=== PATIENT | female | born 1945 | race Caucasian/White ===

== ENCOUNTER → 2017-08-21 12:56 | Outpatient (CLI) | payer MEDICARE, SELFPAY ==
--- NOTE | 2017-08-21 12:56 | DT_ITS ---
This patient was seen during an EMR downtime August 14, 2017 - August 21, 2017. This patient may have a combination of paper and electronic documentation or all paper documentation. All documentation is viewable within the e-chart portion of [facility] for each patient visit.
--- NOTE | 2017-08-21 12:59 | BI_ITS ---
MAMMOGRAPHY - BILATERAL SCREENING REASON FOR EXAM: Female, 72 years old. Routine annual screening examination. PERTINENT HISTORY: Non-contributory. TECHNIQUE: Digital bilateral breast yolette (3D mammographic acquisition) in the CC and MLO projections. 2-D mediolateral oblique (MLO) and craniocaudad (CC) views of both breasts were obtained. CAD: Full Field Digital Mammography with Computer Added Detection was performed. COMPARISON: 08/15/2016 and 08/11/2014. FINDINGS: Breast Composition: The breasts are heterogeneously dense, which may obscure small masses. There are no dominant masses or suspicious calcifications. No other significant abnormalities are identified. BI/SCREENING MAMM (CAD), BILAT IMPRESSION: Stable bilateral screening mammogram. Yearly follow-up mammogram recommended. (A) ASSESSMENT CATEGORY: BIRADS Category 2: Benign. A letter regarding these results will be sent to the patient by the facility within 30 days. Approximately 10% of breast cancers are not detected by mammography. A normal mammogram should not delay biopsy of a clinically suspicious abnormality. [id number] Electronically Signed: Jayashree Ware MD at 11:41 EDT Tel , Service support ,
== END ==
PROVIDERS: Family Provider Family Medicine; PCP Family Medicine; Visit Provider Family Medicine
DX: Z12.31 Encounter for screening mammogram for malignant neoplasm of breast (principal)
CPT/HCPCS: 77063; 77067

== ENCOUNTER → 2017-10-04 08:27 | Outpatient (CLI) | payer MEDICARE, SELFPAY ==
[2017-10-04 10:22] LABS: ALB/GLOB Ratio 1.2 RATIO (0.9-2.4); AST(SGOT) 41 U/L (15-37); Alanine Aminotransfer ALT/SGPT 48 U/L (13-56); Albumin, Serum 3.9 g/dL (3.2-5.0); Alkaline Phosphatase 73 U/L (45-117); Anion Gap 6 (5-15); BUN 8 mg/dL (7-18); Calcium,Total 9.1 mg/dL (8.5-10.1); Chloride 107 mmol/L (98-107); Cholesterol 179 mg/dL (200); Creatinine, Serum 0.73 mg/dL (0.55-1.02); EST Glomerular Filtration Rate 84 mL/min (>60); Est Glom Filt Rate - Afr Amer 101 mL/min (>60); Globulin 3.3 g/dL (2.2-4.2); Glucose 89 mg/dL (74-106); High Density Lipoprotein 62 mg/dL; Potassium 3.9 mmol/L (3.5-5.1); Protein, Total 7.2 g/dL (6.4-8.2); Sodium Level 144 mmol/L (136-145); Triglycerides 132 mg/dL; Very Low Density Lipoprotein 26 mg/dL (5-40)
== END ==
PROVIDERS: Family Provider Family Medicine; PCP Family Medicine; Visit Provider Family Medicine
DX: E78.00 Pure hypercholesterolemia, unspecified (principal)
CPT/HCPCS: 36415; 80053; 80061

== ENCOUNTER → 2018-04-05 08:24 | Outpatient (CLI) | payer MEDICARE, SELFPAY ==
[2018-04-05 10:37] LABS: Cholesterol 203 mg/dL (200); High Density Lipoprotein 79 mg/dL; Triglycerides 69 mg/dL; Very Low Density Lipoprotein 14 mg/dL (5-40)
== END ==
PROVIDERS: Family Provider Family Medicine; PCP Family Medicine; Visit Provider Family Medicine
DX: E78.00 Pure hypercholesterolemia, unspecified (principal)
CPT/HCPCS: 36415; 80061

== ENCOUNTER 2018-06-27 08:19 | Day surgery (SDC) | payer MEDICARE, SELFPAY ==
[2018-06-07 13:46] VITALS: BMI 24.3
--- NOTE | 2018-06-27 | GASB_PTH ---
PATIENT: YANIV BAILEY LOC: EN U#:[id number] AGE/SX: 73/F ROOM: RE06/27/[address]: Dr. Sunday Joshi MD : 1945 BED: DIS: 06/27/2018 SPEC #: [id number] RECD: 06/27/18 14:27 STATUS: DEO ELEUTERIO #: [id number] ZEE: 06/27/18 00:[address]: Sunday Joshi DEPT: SURGICAL PATHOLOGY RECD BY: Nicho Morrow ENTERED: 06/27/18 14:27 SP TYPE: Gastric Bx OTHR DR: Dr. Casa Gayle MD Tissues: A - Gastric mucous membrane B - Stomach, NOS Procedures: Surgery Specimen Level IV HEADER OPERATION: Colonoscopy, EGD ([facility] [place]) PRE-OP DIAGNOSIS: Positive Cologuard test TISSUE SUBMITTED: A - Antral biopsy, B - Polyp, stomach biopsy MICROSCOPIC DIAGNOSIS A. Gastric antrum, biopsy: Mild chronic gastritis. See comment. B. Gastric polyp, biopsy: Consistent with fundic gland polyp. AM:ashley 06/28/18 COMMENT A. The results of immunohistochemistry for Helicobacter pylori will be reported separately ([id number]). MICROSCOPIC DESCRIPTION Slides are reviewed. GROSS DESCRIPTION A - Received in fixative is one container labeled with the patient's name and designated antral biopsy. The specimen consists of one irregular fragment of light gonzalez soft tissue that measures 0.4 x 0.3 x 0.1 cm. The specimen is totally submitted in one cassette. B - Received in fixative is one container labeled with the patient's name and designated polyp stomach biopsy. The specimen consists of multiple irregular fragments of light gonzalez soft tissue that in aggregate measure 0.5 x 0.4 x 0.1 cm. The specimen is totally submitted in one cassette. / SJ:ashley 06/27/18 TC:3 CPT: 36389 x2
--- NOTE | 2018-06-27 | IMM_PTH ---
PATIENT: YANIV BAILEY LOC: EN U#:[id number] AGE/SX: 73/F ROOM: RE06/27/[address]: Dr. Sunday Joshi MD : 1945 BED: DIS: 06/27/2018 SPEC #: [id number] RECD: 06/28/18 13:01 STATUS: DEO REQ #: [id number] ZEE: 06/27/18 00:[address]: Sunday Joshi DEPT: IMMUNOHISTOCHEMISTRY RECD BY: Rain West ENTERED: 06/28/18 13:01 SP TYPE: IMMUNO OTHR DR: Dr. Casa Gayle MD Tissues: A - Stomach, NOS Procedures: H Pylori (initial) PHYSICIAN & INSTITUTION [place] [address] SPECIMEN INFORMATION: Tissue Source: A - Antral biopsy Clinical Info: Positive Cologuard test Specimen Number: [id number] CPT code: 16287 METHODOLOGY: Deparaffinized sections of prefer/formalin-fixed tissue or PAP/DQ stained slides are incubated with monoclonal/polyclonal antibodies/oligonucleotide probes. Localization is made via biotin free immunoperoxidase method. Appropriate controls are performed and reacted as expected. Results on target cell population are indicated in the following table: RESULTS: ANTIBODY / CLONE RESULT Block A H Pylori (polyclonal) negative These tests were developed and their performance characteristics determined by [facility]. They may not have been cleared or approved by the U.S. Food and Drug Administration. The FDA has determined that such clearance or approval is not necessary. INTERPRETATION: A. Antral biopsy: Negative for Helicobacter pylori organisms. AM:ashley 06/29/18
[2018-06-27 08:35] VITALS: BP 166/70; PULSE 90; RESP 18; TEMP 36.2; O2SAT 99; BMI 23.5
[2018-06-27 09:40] VITALS: BP 114/76; BP 166/70; PULSE 66; RESP 18; TEMP 36.8; O2SAT 95
[2018-06-27 09:45] VITALS: BP 130/82; BP 166/70; PULSE 64; RESP 18; O2SAT 94
--- NOTE | 2018-06-27 09:45 | OP.ENDO_ITS ---
06/27/2018 Casa Gayle MD [address] [id number] Re : Upper GI endoscopy procedure for Monika Calderón Dear Dr. Gayle This procedure was performed on Wednesday, June 27, 2018. My impressions and recommendations are as follows: Impressions : - Normal esophagus. - Erythematous mucosa in the prepyloric region of the stomach. Biopsied. - A few gastric polyps. Resected and retrieved. - Normal examined duodenum. No specimens collected. Recommendations : - Discharge patient to home. - Resume previous diet. - Continue present medications. - Await pathology results. - Repeat upper endoscopy at appointment to be scheduled for screening purposes. - Return to my office in 1 week. My findings are described in the full procedure note, which is enclosed. If I can be of further assistance, please feel free to contact me at Doctor phone number(s): , Fax: [phone], Work: . Sincerely, MD Sunday Corrigan MD 06/27/2018 9:45:20 AM This report has been signed electronically.
[2018-06-27 09:50] VITALS: BP 126/80; BP 166/70; PULSE 68; RESP 16; O2SAT 98
--- NOTE | 2018-06-27 09:50 | OP.ENDO_ITS ---
06/27/2018 Casa Gayle MD [address] [place] [address] Re : Colonoscopy procedure for Monika Calderón Dear Dr. Gayle This procedure was performed on Wednesday, June 27, 2018. My impressions and recommendations are as follows: Impressions : - Diverticulosis in the sigmoid colon and in the descending colon. No specimens collected. - The examination was otherwise normal on direct and retroflexion views. Recommendations : - Discharge patient to home. - Resume previous diet. - Continue present medications. - Repeat colonoscopy in 10 years for screening purposes. - Return to my office in 1 week. My findings are described in the full procedure note, which is enclosed. If I can be of further assistance, please feel free to contact me at Doctor phone number(s): , Fax: [phone], Work: . Sincerely, MD Sunday Corrigan MD 06/27/2018 9:50:03 AM This report has been signed electronically.
[2018-06-27 09:57] VITALS: BP 108/96; BP 166/70; PULSE 61; RESP 16; TEMP 37; O2SAT 94
[2018-06-27 10:21] VITALS: BP 166/70
== END 2018-06-27 10:40 | disposition home or self-care (01) ==
LOC: EN 08:19 → AC 08:21
PROVIDERS: Family Provider Family Medicine; PCP Family Medicine; Referring Provider Surgery; Visit Provider Surgery
PROC: 0DJD8ZZ Inspection of Lower Intestinal Tract, Via Natural or Artificial Opening Endoscopic (ICD-10-PCS; CPT 45378; principal; 2018-06-27 09:25)
DX: K29.50 Unspecified chronic gastritis without bleeding (principal); K31.7 Polyp of stomach and duodenum; K57.30 Diverticulosis of large intestine without perforation or abscess without bleeding; K64.8 Other hemorrhoids; R19.5 Other fecal abnormalities; E78.00 Pure hypercholesterolemia, unspecified
CPT/HCPCS: 43239; 45378; 88305; 88342; J7120; J1610

== ENCOUNTER → 2018-08-23 08:36 | Outpatient (CLI) | payer MEDICARE, SELFPAY ==
--- NOTE | 2018-08-23 08:38 | BI_ITS ---
MAMMOGRAPHY - BILATERAL SCREENING REASON FOR EXAM: Female, 73 years old. Routine annual screening examination. PERTINENT HISTORY: Personal history of breast cancer. Prior right lumpectomy. TECHNIQUE: Digital bilateral breast román (3D mammographic acquisition) in the CC and MLO projections. 2-D mediolateral oblique (MLO) and craniocaudad (CC) views of both breasts were obtained. CAD: Full Field Digital Mammography with Computer Added Detection was performed. COMPARISON: Comparison is made with prior study dated August 21, 2017 and August 15, 2016. FINDINGS: Breast Composition: The breasts are heterogeneously dense, which may obscure small masses. There are no dominant masses or suspicious calcifications. No other significant abnormalities are identified. There has been no significant change since the prior study. BI/SCREEN MAMM (CAD) W/ROMÁN BILAT IMPRESSION: Stable bilateral screening mammogram. Yearly follow-up mammogram recommended. (A) ASSESSMENT CATEGORY: BIRADS Category 1: Negative. A letter regarding these results will be sent to the patient by the facility within 30 days. Approximately 10% of breast cancers are not detected by mammography. A normal mammogram should not delay biopsy of a clinically suspicious abnormality. [id number] Electronically Signed: Praveen Barrett, at 10:38 EDT , Service support ,
== END ==
PROVIDERS: Family Provider Family Medicine; PCP Family Medicine; Referring Provider Family Medicine; Visit Provider Family Medicine
DX: Z00.00 Encounter for general adult medical examination without abnormal findings (principal); Z12.31 Encounter for screening mammogram for malignant neoplasm of breast
CPT/HCPCS: 77063; 77067

== ENCOUNTER 2018-10-07 05:21 | Emergency (ER) | payer MEDICARE, SELFPAY ==
[2018-10-07 05:22] VITALS: BP 178/85; PULSE 91; RESP 15; TEMP 36.7; O2SAT 97; BMI 24.7
--- NOTE | 2018-10-07 05:31 | CT_ITS ---
STUDY: CT ABDOMEN AND PELVIS WITHOUT CONTRAST REASON FOR EXAM: Female, 73 years old. Left lower quadrant pain, breast cancer, hysterectomy RADIATION DOSAGE (If Supplied By Facility): CTDIvol = ( 7.25 ) mGy, DLP = ( 382.16 ) mGycm TECHNIQUE: Transaxial images were obtained from the dome of the diaphragm to the symphysis pubis without oral contrast, and without intravenous contrast. Sagittal and coronal images were reconstructed. Individualized dose optimization techniques were used for this CT. COMPARISON: None. FINDINGS: This is a limited non-IV and nonoral contrast study. There are mild groundglass opacities within the lung bases. There is mild linear subsegmental atelectasis within the right middle lobe. The visualized portions of the heart are within normal limits. Normal liver. Normal gallbladder and extrahepatic biliary system. Normal spleen. Normal pancreas. Normal bilateral adrenal glands. Normal right kidney. Normal left kidney. Normal visualized stomach. Normal small intestine. There is significant stranding within the perisigmoid fat. There are multiple colonic diverticula. There is a moderate to large colonic fecal load with mild cecal distention. There is prior hysterectomy. There is linear hyperdensity which may be surgical staple line near the location of the base of the appendix is maybe from prior appendectomy Normal abdominal aorta. Normal inferior vena cava. Normal retroperitoneum. There is mild distention of the bladder.. Normal abdominal wall. There are Multilevel degenerative changes lower thoracic and lumbar spine. There is mild lumbar spine levoscoliosis. There are mild degenerative changes bilateral hips and acetabulum. There are multiple vascular calcifications. There is a small hiatal hernia. CT/Abdomen/Pelvis without Cont IMPRESSION: Limited non-IV nonoral contrast study Acute sigmoid colon diverticulitis Likely partial fecal impaction with moderate to large colonic fecal load, mild cecal distention, once treated colonoscopy would be recommended to exclude underlying lesion Distended bladder Prior hysterectomy and likely prior appendectomy Mild groundglass pulmonary opacities in the lung bases, hypoventilatory changes and/or mild infectious inflammatory infiltrates, pneumonia Multilevel degenerative changes lower thoracic and lumbar spine. There is mild lumbar spine levoscoliosis. There are mild degenerative changes bilateral hips and acetabulum Small hiatal hernia Electronically Signed: Juancarlos Walters, at 6:52 EDT Tel , Service support ,
--- NOTE | 2018-10-07 05:31 | ED.VIS.GEN ---
History of Present Illness Chief Complaint: Abd Pain Informant: Patient Onset: Today Narrative: Sudden worsening lower abdominal pain awakening her from sleep. States was mild initially went to urinate try to go back to bed however pain increased. Was able to force to small bowel movements. Denies any dysuria. Denies noting any clear blood in stools. No fevers. Had nausea at home, however none currently. No history of kidney stones. Status post EGD colonoscopy [address] Joshi for due to a positive screening test. Had polypectomy removed in the gastrum. Diverticulosis on colonoscopy, states may have had diverticulitis in the past however this feels different. Pain is 8 out of 10. Allergy reported to Demerol causing nausea. History of total hysterectomy in the past. Prior similar symptoms: No Past Medical History - Allergies and Home Meds Allergies/Adverse Reactions: Allergies meperidine [From Demerol] Allergy (Mild, Verified 10/07/18 05:24) Unknown Primary Care Physician: Casa Gayle MD [Primary Care Provider] - Smoking Status: Never smoker Review of Systems General: Denies: Chills, Fever, Sweats Eyes: Denies: Visual changes - bilaterally, Diplopia ENT: Denies: Rhinorrhea, Sore throat Cardiovascular: Denies: Chest pain, Palpitations Respiratory: Denies: Dyspnea, Cough, Dyspnea on exertion Gastrointestinal: Reports: Abdominal pain. Denies: Nausea, Vomiting, Diarrhea, Melena, Hematochezia Genitourinary: Denies: Dysuria, Hematuria, Frequency Musculoskeletal: Denies: Back pain, Extremity Pain Skin: Denies: Rash, Wounds Neurological: Denies: Headache, Weakness, Numbness Physical Exam Vital Signs/Narrative: Vital Signs Temp Pulse Resp BP Pulse Ox 10/07/18 05:22 98.1 F 91 15 178/85 H 97 Inital Vital Signs reviewed: Yes General: Well nourished, Well developed, No Acute Distress Head: Normocephalic, Atraumatic Eyes: Perrl, EOMI ENT: Moist mucous membranes, No rhinorrhea Neck: Supple, Nontender Cardiovascular: Regular rate, Regular rhythm, No murmurs Respiratory: No distress, CTA bilaterally, Chest nontender Abdomen: Soft, Nondistended, Normal bowel sounds, Tender, - - Mild tenderness left lower quadrant without guarding or rebound. Negative McBurney's tenderness. Back: Nontender, Normal Inspection Extremities: Nontender, No edema Skin: Normal color, No rash Neurological: Alert, Oriented x3, Cranial nerves II-XII grossly intact, Normal Strength, Normal Sensation Psychological: Normal affect, Normal Mood Diagnostic/Tx/Re-eval Clinical Impression(s) from Imaging Studies Abdomen/Pelvis CT 10/07/18 05:31 IMPRESSION: Limited non-IV nonoral contrast study Acute sigmoid colon diverticulitis Likely partial fecal impaction with moderate to large colonic fecal load, mild cecal distention, once treated colonoscopy would be recommended to exclude underlying lesion Distended bladder Prior hysterectomy and likely prior appendectomy Mild groundglass pulmonary opacities in the lung bases, hypoventilatory changes and/or mild infectious inflammatory infiltrates, pneumonia Multilevel degenerative changes lower thoracic and lumbar spine. There is mild lumbar spine levoscoliosis. There are mild degenerative changes bilateral hips and acetabulum Small hiatal hernia Electronically Signed: Juancarlos Romeo, at 6:52 EDT Tel , Service support , Abnormal Lab Results 10/07/18 10/07/18 10/07/18 05:26 05:26 06:40 WBC 13.8 H RBC 4.17 L Hgb 13.4 Hct 39.7 MCV 95.2 MCH 32.1 H MCHC 33.8 RDW Std Deviation 41.9 RDW Coeff of Malachi 12.0 Plt Count 211 MPV 9.7 Immature Gran % (Auto) 0.400 Neut % (Auto) 85.4 H Lymph % (Auto) 8.9 L [place] % (Auto) 4.9 Eos % (Auto) 0.2 Baso % (Auto) 0.2 Absolute Neuts (auto) 11.8 H Absolute Lymphs (auto) 1.23 Absolute Nucleated RBC 0.00 Nucleated RBC % 0 Sodium 140 Potassium 3.7 Chloride 105 Carbon Dioxide 27.0 Anion Gap 8 BUN 14 Creatinine 0.86 Estim Creat Clear Calc 59.65 Est GFR (MDRD) Af Amer 84 Est GFR (MDRD) Non-Af 69 BUN/Creatinine Ratio 16.4 Glucose 148 H Calcium 9.0 Urine Color Yellow Urine Clarity Clear Urine pH 7.0 Ur Specific [place] 1.015 Urine Protein Negative Urine Glucose (UA) Normal Urine Ketones Negative Urine Occult Blood 10 H Urine Nitrite Negative Urine Bilirubin Negative Urine Urobilinogen Normal Ur Leukocyte Esterase 500 H - Medical Decision Making Patient vital signs stable nonsurgical abdomen. There is left lower quadrant tenderness. Work-up initiated white count 13, CT scan does confirm sigmoid diverticulitis with no complications. Symptoms improve morphine Zofran, reevaluation symptoms improving. She did have a heart rate of 91, she meets sepsis criteria however she is not septic. Discussed with patient findings and disposition. Patient reports she would like to go home to manage symptoms. She started on Cipro and Flagyl orally. In addition CT scan per radiology reporting some stool burden on right side with concerns of partial impaction. Patient with no vomiting. There he recommended colonoscopy when symptoms improved to rule out cancerous findings, however she had a colonoscopy 3 months ago for screening by Dr. Joshi. Strict signs and symptoms discussed with patient to return otherwise prescriptions were written for symptom control. Follow-up with her surgeon. All questions were answered. ED Disposition - Plan for ED Patient: Disposition: Home or Assisted Living Diagnosis: Acute sigmoid diverticulitis Instructions: Diverticulitis Prescriptions: Ciprofloxacin [Cipro] 500 mg PO BID #20 tablet Docusate Sodium [Colace] 100 mg PO BID #20 capsule metroNIDAZOLE [Flagyl] 500 mg PO Q8H #30 tablet Oxycodone HCl/Acetaminophen [Percocet 5/325] 1 tablet PO Q6H PRN PRN 3 Days #12 tablet PRN Reason: Pain Ondansetron [Zofran Odt] 4 mg PO Q8H PRN PRN #10 tablet PRN Reason: Nausea Referrals: Casa Gayle MD [Primary Care Provider] - Sunday Joshi MD [STAFF PHYSICIAN] - 5-7 Days
[2018-10-07] MEDS: 0.9% Normal Saline 1,000 ML 1000 ML IV (05:40)
[2018-10-07] MEDS: Morphine 4 MG/ML Syringe IV (05:40)
[2018-10-07] MEDS: Ondansetron 4 MG/2 ML Vial IV (05:40)
[2018-10-07 05:45] LABS: Absolute Lymphocyte Count 1.23 X10^3/uL (0.83-4.51); Absolute Neutrophil Count 11.8 X10^3/uL (2.0-7.7); Basophil# 0.03 X10^3/uL; Basophil% 0.2 % (0-1); Eosinophil# 0.03 X10^3/uL; Eosinophils% 0.2 % (0-5); Hematocrit 39.7 % (37-47); Hemoglobin 13.4 g/dL (12.0-15.0); Lymphocyte # 1.23 X10^3/ul (4.0); Lymphocyte % 8.9 % (19-41); Mean Corp Hgb Conc 33.8 g/dL (32-36); Mean Corpuscular Hgb 32.1 pg (27.0-32.0); Mean Corpuscular Volume 95.2 fL (81-99); Mean Platelet Vol. 9.7 fl (6.2-12.0); Monocyte# 0.67 X10^3/uL; Monocyte% 4.9 % (0-10); NRBC Flagged by Analyzer 0 % (0-5); Neutrophil # 11.78 X10^3/uL (2.7-7.7); Neutrophil % 85.4 % (47-70); Platelet Count 211 K/mm3 (150-450); RBC Distribution Width SD 41.9 fl (35.1-43.9); Red Blood Count 4.17 M/mm3 (4.2-5.4); White Blood Count 13.8 K/mm3 (4.4-11.0)
[2018-10-07 06:04] LABS: Anion Gap 8 (5-15); BUN 14 mg/dL (7-18); BUN/Creat Ratio 16.4 RATIO (10-20); Chloride 105 mmol/L (98-107); Creatinine, Serum 0.86 mg/dL (0.55-1.02); EST Glomerular Filtration Rate 69 mL/min (>60); Est Glom Filt Rate - Afr Amer 84 mL/min (>60); Estimated Creatinine Clearance 59.65 ml/min; Glucose 148 mg/dL (74-106); Potassium 3.7 mmol/L (3.5-5.1); Sodium Level 140 mmol/L (136-145)
[2018-10-07 06:44] LABS: Bacteria 0 SEEN /hpf (None Seen); Mucous, Urine 0 SEEN /hpf (<or=2+); Red Blood Cells-Urine 0 SEEN /hpf (0-5); Squamous Epithelial Cells - UA 0 SEEN /hpf (5-10)
[2018-10-07 06:57] LABS: Color, Urine Yellow (Yellow); Glucose, Dipstick Normal (Normal); Ketone-Dipstick Negative (Negative); Leukocyte Esterase-Dipstick 500 /ul (Negative); Nitrite-Dipstick Negative (Negative); Occult Blood-Urine 10 /ul (Negative); Protein-Dipstick Negative (Negative); Specific Gravity, Urine 1.015 (1.002-1.030); Urine Bilirubin Dipstick Negative (Negative); Urine Clarity Clear (Clear); Urine Urobilinogen Normal (Normal)
[2018-10-07 07:05] LABS: White Blood Cells 10-25 SEEN /hpf (0-5)
[2018-10-07 07:31] VITALS: BP 135/74; PULSE 61; RESP 15; O2SAT 98
[2018-10-07] MEDS: Ciprofloxacin 500 MG Tablet PO (07:32)
[2018-10-07] MEDS: metroNIDAZOLE 500 MG Tablet PO (07:33)
== END 2018-10-07 07:34 | disposition home or self-care (01) ==
PROVIDERS: Emergency Provider Emergency Medicine; Family Provider Family Medicine; PCP Family Medicine
DX: K57.32 Diverticulitis of large intestine without perforation or abscess without bleeding (principal); K44.9 Diaphragmatic hernia without obstruction or gangrene; Z90.710 Acquired absence of both cervix and uterus
CPT/HCPCS: 74176; 80048; 81001; 85025; 96361; 96374; 96375; 99284; J7030; A4216; J2405

== ENCOUNTER 2018-10-31 13:59 | Outpatient (RCR) | payer SELFPAY ==
[2018-10-15 09:08] VITALS: BMI 24.7
== END 2018-11-10 23:59 ==
LOC: NS 13:59
PROVIDERS: Family Provider Family Medicine; PCP Family Medicine; Visit Provider Surgery
DX: K57.92 Diverticulitis of intestine, part unspecified, without perforation or abscess without bleeding (principal); Z71.3 Dietary counseling and surveillance
CPT/HCPCS: 97802

== ENCOUNTER → 2018-12-07 08:13 | Outpatient (CLI) | payer MEDICARE, SELFPAY ==
[2018-10-15 09:08] VITALS: BMI 24.7
[2018-12-07 10:26] LABS: ALB/GLOB Ratio 1.1 RATIO (0.9-2.4); AST(SGOT) 23 U/L (15-37); Alanine Aminotransfer ALT/SGPT 32 U/L (13-56); Albumin, Serum 3.8 g/dL (3.2-5.0); Alkaline Phosphatase 83 U/L (45-117); Anion Gap 4 (5-15); BUN 9 mg/dL (7-18); BUN/Creat Ratio 12.9 RATIO (10-20); Chloride 106 mmol/L (98-107); Cholesterol 195 mg/dL (200); EST Glomerular Filtration Rate 88 mL/min (>60); Est Glom Filt Rate - Afr Amer 106 mL/min (>60); Globulin 3.4 g/dL (2.2-4.2); Glucose 91 mg/dL (74-106); High Density Lipoprotein 65 mg/dL; Potassium 3.9 mmol/L (3.5-5.1); Protein, Total 7.2 g/dL (6.4-8.2); Sodium Level 140 mmol/L (136-145); Triglycerides 109 mg/dL; Very Low Density Lipoprotein 22 mg/dL (5-40)
== END ==
PROVIDERS: Family Provider Family Medicine; PCP Family Medicine; Referring Provider Family Medicine; Visit Provider Family Medicine
DX: Z13.21 Encounter for screening for nutritional disorder (principal); E78.00 Pure hypercholesterolemia, unspecified
CPT/HCPCS: 36415; 80053; 80061

== ENCOUNTER → 2018-12-14 11:13 | Outpatient (CLI) | payer MEDICARE, SELFPAY ==
[2018-10-15 09:08] VITALS: BMI 24.7
[2018-12-14 13:06] LABS: Vitamin D,25 Hydroxy 25.4 ng/mL (29.95-100.01)
== END ==
PROVIDERS: Family Provider Family Medicine; PCP Family Medicine; Referring Provider Family Medicine; Visit Provider Family Medicine
DX: E55.9 Vitamin D deficiency, unspecified (principal)
CPT/HCPCS: 36415; 82306

== ENCOUNTER → 2019-07-18 08:41 | Outpatient (CLI) | payer MEDICARE, SELFPAY ==
[2018-10-15 09:08] VITALS: BMI 24.7
[2019-07-18 11:06] LABS: ALB/GLOB Ratio 1.2 RATIO (0.9-2.4); AST(SGOT) 24 U/L (15-37); Alanine Aminotransfer ALT/SGPT 37 U/L (13-56); Albumin, Serum 3.9 g/dL (3.2-5.0); Alkaline Phosphatase 84 U/L (45-117); Anion Gap 4 (5-15); BUN 11 mg/dL (7-18); BUN/Creat Ratio 15.8 RATIO (10-20); Calcium,Total 9.2 mg/dL (8.5-10.1); Chloride 105 mmol/L (98-107); Cholesterol 189 mg/dL (200); EST Glomerular Filtration Rate 88 mL/min (>60); Est Glom Filt Rate - Afr Amer 106 mL/min (>60); Globulin 3.3 g/dL (2.2-4.2); Glucose 96 mg/dL (74-106); High Density Lipoprotein 77 mg/dL; Potassium 3.9 mmol/L (3.5-5.1); Protein, Total 7.2 g/dL (6.4-8.2); Sodium Level 140 mmol/L (136-145); Triglycerides 62 mg/dL; Very Low Density Lipoprotein 12 mg/dL (5-40)
== END ==
PROVIDERS: PCP Family Medicine; Visit Provider Family Medicine
DX: E78.00 Pure hypercholesterolemia, unspecified (principal)
CPT/HCPCS: 36415; 80053; 80061

== ENCOUNTER → 2019-08-26 11:41 | Outpatient (CLI) | payer MEDICARE, SELFPAY ==
[2018-10-15 09:08] VITALS: BMI 24.7
--- NOTE | 2019-08-26 11:45 | BI_ITS ---
MAMMOGRAPHY - BILATERAL SCREENING REASON FOR EXAM: Female, 74 years old. Routine annual screening examination. PERTINENT HISTORY: Personal history of breast cancer. Prior right lumpectomy. TECHNIQUE: Digital bilateral breast román (3D mammographic acquisition) in the CC and MLO projections. 2-D mediolateral oblique (MLO) and craniocaudad (CC) views of both breasts were obtained. CAD: Full Field Digital Mammography with Computer Added Detection was performed. COMPARISON: Comparison is made with prior study dated August 23, 2018 and August 21, 2017. FINDINGS: Breast Composition: There are scattered areas of fibroglandular density. There are no dominant masses or suspicious calcifications. Stable small benign-appearing bilateral axillary No other significant abnormalities are identified. There has been no significant change since the prior study. BI/SCREEN MAMM (CAD) W/ROMÁN BILAT IMPRESSION: Stable bilateral screening mammogram. Yearly follow-up mammogram recommended. (A) ASSESSMENT CATEGORY: BIRADS Category 2: Benign. A letter regarding these results will be sent to the patient by the facility within 30 days. Approximately 10% of breast cancers are not detected by mammography. A normal mammogram should not delay biopsy of a clinically suspicious abnormality. [id number] Electronically Signed: Praveen Barrett, at 12:51 EDT , Service support ,
== END ==
PROVIDERS: PCP Family Medicine; Referring Provider Family Medicine; Visit Provider Family Medicine
DX: Z12.31 Encounter for screening mammogram for malignant neoplasm of breast (principal); Z85.3 Personal history of malignant neoplasm of breast
CPT/HCPCS: 77063; 77067

== ENCOUNTER → 2020-01-17 08:14 | Outpatient (CLI) | payer MEDICARE, SELFPAY ==
[2018-10-15 09:08] VITALS: BMI 24.7
[2020-01-17 10:23] LABS: Vitamin D,25 Hydroxy 38.8 ng/mL
[2020-01-17 10:54] LABS: Anion Gap 4 (5-15); BUN 10 mg/dL (7-18); BUN/Creat Ratio 13.4 RATIO (10-20); Calcium,Total 9.3 mg/dL (8.5-10.1); Chloride 108 mmol/L (98-107); Cholesterol 196 mg/dL (200); Creatinine, Serum 0.75 mg/dL (0.55-1.02); EST Glomerular Filtration Rate 81 mL/min (>60); Est Glom Filt Rate - Afr Amer 97 mL/min (>60); Glucose 91 mg/dL (74-106); High Density Lipoprotein 66 mg/dL; Sodium Level 141 mmol/L (136-145); Triglycerides 84 mg/dL; Very Low Density Lipoprotein 17 mg/dL (5-40)
== END ==
PROVIDERS: PCP Family Medicine; Referring Provider Family Medicine; Visit Provider Family Medicine
DX: E78.00 Pure hypercholesterolemia, unspecified (principal); E55.9 Vitamin D deficiency, unspecified
CPT/HCPCS: 36415; 80048; 80061; 82306

== ENCOUNTER → 2020-07-21 09:40 | Outpatient (CLI) | payer MEDICARE, SELFPAY ==
[2018-10-15 09:08] VITALS: BMI 24.7
[2020-07-21 12:37] LABS: Cholesterol 198 mg/dL (200); High Density Lipoprotein 84 mg/dL; Triglycerides 79 mg/dL; Very Low Density Lipoprotein 16 mg/dL (5-40)
== END ==
PROVIDERS: PCP Family Medicine; Referring Provider Family Medicine; Visit Provider Family Medicine
DX: E78.00 Pure hypercholesterolemia, unspecified (principal)
CPT/HCPCS: 36415; 80061

== ENCOUNTER → 2020-07-24 10:14 | Outpatient (CLI) | payer MEDICARE, SELFPAY ==
[2018-10-15 09:08] VITALS: BMI 24.7
--- NOTE | 2020-07-24 10:19 | RAD_ITS ---
STUDY: X-RAY - CERVICAL SPINE REASON FOR EXAM: Female, 75 years old. CERVICALGIA TECHNIQUE: 5 view(s) of the cervical spine were obtained. COMPARISON: None FINDINGS: Normal anterior atlantoaxial articulation. Normal odontoid process. There is straightening of the normal cervical lordosis. There is multi-level endplate spondylosis. There is multi-level degenerative disc disease with multilevel disc space narrowing. There is multi-level osseous foraminal stenosis. The soft tissue structures are unremarkable. RAD/Cerv Spine 4 or 5 Views IMPRESSION: Moderate to severe multilevel degenerative disc disease. Electronically Signed: Filiberto Hernandez DO at 23:14 EDT Tel , Service support ,
== END ==
PROVIDERS: PCP Family Medicine; Referring Provider Family Medicine; Visit Provider Family Medicine
DX: M54.2 Cervicalgia (principal)
CPT/HCPCS: 72050

== ENCOUNTER → 2020-08-28 09:52 | Outpatient (CLI) | payer MEDICARE, SELFPAY ==
[2018-10-15 09:08] VITALS: BMI 24.7
--- NOTE | 2020-08-28 09:54 | BI_ITS ---
MAMMOGRAPHY - BILATERAL SCREENING REASON FOR EXAM: Female, 75 years old. Routine annual screening examination. PERTINENT HISTORY: Personal history of breast cancer. Prior right lumpectomy. TECHNIQUE: Digital bilateral breast román (3D mammographic acquisition) in the CC and MLO projections. 2-D mediolateral oblique (MLO) and craniocaudad (CC) views of both breasts were obtained. CAD: Full Field Digital Mammography with Computer Added Detection was performed. COMPARISON: Comparison is made with prior study dated 08/26/2019 and 08/23/2018. FINDINGS: Breast Composition: There are scattered areas of fibroglandular density. There are no dominant masses or suspicious calcifications. Stable focal area of scarring in the retroareolar region of the left breast in keeping with prior lumpectomy. Stable benign-appearing bilateral axillary lymph nodes. No other significant abnormalities are identified. There has been no significant change since the prior study. BI/SCRN MAMM (CAD)W/ROMÁN BILAT IMPRESSION: Stable bilateral screening mammogram. Yearly follow-up mammogram recommended. (A) ASSESSMENT CATEGORY: BIRADS Category 2: Benign. A letter regarding these results will be sent to the patient by the facility within 30 days. Approximately 10% of breast cancers are not detected by mammography. A normal mammogram should not delay biopsy of a clinically suspicious abnormality. [id number] Electronically Signed: Praveen Barrett MD at 11:04 EDT , Service support ,
== END ==
PROVIDERS: PCP Family Medicine; Referring Provider Family Medicine; Visit Provider Family Medicine
DX: Z12.31 Encounter for screening mammogram for malignant neoplasm of breast (principal)
CPT/HCPCS: 77063; 77067

== ENCOUNTER → 2020-09-09 11:24 | Outpatient (CLI) | payer MEDICARE, SELFPAY ==
[2018-10-15 09:08] VITALS: BMI 24.7
--- NOTE | 2020-09-09 11:26 | RAD_ITS ---
STUDY: X-RAY - LEFT KNEE REASON FOR EXAM: Left knee pain, burning when kneeling. TECHNIQUE: 3 view(s) of the knee. COMPARISON: None. FINDINGS: Normal visualized distal femur. Normal visualized proximal tibia and fibula. Normal proximal tibiofibular articulation. Normal medial femorotibial compartment. Normal lateral femorotibial compartment. Normal patellofemoral articulation. There is anterior soft tissue swelling. RAD/Knee 3 Views IMPRESSION: Anterior soft tissue swelling. Otherwise, unremarkable x-ray examination of the left knee. Electronically Signed: Rocco Price MD at 15:00 EDT Tel , Service support ,
== END ==
PROVIDERS: PCP Family Medicine; Referring Provider Family Medicine; Visit Provider Family Medicine
DX: M25.562 Pain in left knee (principal)
CPT/HCPCS: 73562

== ENCOUNTER → 2021-01-21 08:03 | Outpatient (CLI) | payer MEDICARE, SELFPAY ==
[2021-01-21 10:57] LABS: ALB/GLOB Ratio 1.1 RATIO (0.9-2.4); AST(SGOT) 26 U/L (15-37); Alanine Aminotransfer ALT/SGPT 35 U/L (13-56); Albumin, Serum 3.8 g/dL (3.2-5.0); Alkaline Phosphatase 83 U/L (45-117); Anion Gap 4 (5-15); BUN 14 mg/dL (7-18); BUN/Creat Ratio 17.6 RATIO (10-20); Calcium,Total 9.2 mg/dL (8.5-10.1); Chloride 104 mmol/L (98-107); Cholesterol 205 mg/dL (200); EST Glomerular Filtration Rate 75 mL/min (>60); Est Glom Filt Rate - Afr Amer 90 mL/min (>60); Globulin 3.6 g/dL (2.2-4.2); Glucose 87 mg/dL (74-106); High Density Lipoprotein 89 mg/dL; Potassium 3.9 mmol/L (3.5-5.1); Protein, Total 7.4 g/dL (6.4-8.2); Sodium Level 139 mmol/L (136-145); Triglycerides 53 mg/dL; Very Low Density Lipoprotein 11 mg/dL (5-40)
== END ==
PROVIDERS: PCP Family Medicine; Referring Provider Family Medicine; Visit Provider Family Medicine
DX: E78.00 Pure hypercholesterolemia, unspecified (principal)
CPT/HCPCS: 36415; 80053; 80061

== ENCOUNTER → 2021-07-26 | Outpatient (CLI) | payer MEDICARE, SELFPAY ==
[2021-07-26 10:55] LABS: Anion Gap 8 (5-15); BUN 13 mg/dL (7-18); BUN/Creat Ratio 17.3 RATIO (10-20); Calcium,Total 9.4 mg/dL (8.5-10.1); Chloride 105 mmol/L (98-107); Cholesterol 221 mg/dL (200); Creatinine, Serum 0.75 mg/dL (0.55-1.02); EST Glomerular Filtration Rate 80 mL/min (>60); Est Glom Filt Rate - Afr Amer 97 mL/min (>60); Glucose 92 mg/dL (74-106); High Density Lipoprotein 91 mg/dL; Potassium 3.8 mmol/L (3.5-5.1); Sodium Level 140 mmol/L (136-145); Triglycerides 61 mg/dL; Very Low Density Lipoprotein 12 mg/dL (5-40)
== END | disposition home or self-care (01) ==
LOC: MFPLAB 08:03
PROVIDERS: PCP Family Medicine; Visit Provider Family Medicine
DX: E78.00 Pure hypercholesterolemia, unspecified (principal)
CPT/HCPCS: 36415; 80048; 80061

== ENCOUNTER → 2021-09-01 | Outpatient (CLI) | payer MEDICARE, SELFPAY ==
--- NOTE | 2021-09-01 09:54 | BI_ITS ---
MAMMOGRAPHY - BILATERAL SCREENING REASON FOR EXAM: Female, 76 years old. Routine annual screening examination. PERTINENT HISTORY: Personal history of breast cancer with right sided lumpectomy in 1997 TECHNIQUE: Digital bilateral breast román (3D mammographic acquisition) in the CC and MLO projections. 2-D mediolateral oblique (MLO) and craniocaudad (CC) views of both breasts were obtained. CAD: Full Field Digital Mammography with Computer Added Detection was performed. COMPARISON: Screening mammogram from 08/28/2020, 08/26/2019, 08/23/2018, 08/21/2017. FINDINGS: Breast Composition: There are scattered areas of fibroglandular density. There are no dominant masses or suspicious calcifications. Stable lumpectomy scar in the right breast. No other significant abnormalities are identified. There has been no significant change since the prior study. BI/SCRN MAMM (CAD)W/ROMÁN BILAT IMPRESSION: Stable bilateral screening mammogram. Yearly follow-up mammogram recommended. (A) ASSESSMENT CATEGORY: BIRADS Category 2: Benign. A letter regarding these results will be sent to the patient by the facility within 30 days. Approximately 10% of breast cancers are not detected by mammography. A normal mammogram should not delay biopsy of a clinically suspicious abnormality. [id number] Electronically Signed: Niall Doe, at 14:16 EDT ,
== END | disposition home or self-care (01) ==
LOC: OPBI 09:52
PROVIDERS: PCP Family Medicine; Visit Provider Family Medicine
DX: Z12.31 Encounter for screening mammogram for malignant neoplasm of breast (principal); Z85.3 Personal history of malignant neoplasm of breast
CPT/HCPCS: 77063; 77067

== ENCOUNTER → 2022-07-14 | Outpatient (CLI) | payer MEDICARE, SELFPAY ==
[2022-07-14 11:05] LABS: ALB/GLOB Ratio 1.2 RATIO (0.9-2.4); AST(SGOT) 24 U/L (15-37); Alanine Aminotransfer ALT/SGPT 30 U/L (13-56); Albumin, Serum 3.8 g/dL (3.2-5.0); Alkaline Phosphatase 80 U/L (45-117); Anion Gap 7 (5-15); BUN 11 mg/dL (7-18); BUN/Creat Ratio 14.4 RATIO (10-20); Calcium,Total 9.2 mg/dL (8.5-10.1); Chloride 106 mmol/L (98-107); Cholesterol 206 mg/dL (200); Creatinine, Serum 0.76 mg/dL (0.55-1.02); EST Glomerular Filtration Rate 78 mL/min (>60); Est Glom Filt Rate - Afr Amer 94 mL/min (>60); Globulin 3.3 g/dL (2.2-4.2); Glucose 92 mg/dL (74-106); High Density Lipoprotein 86 mg/dL; Potassium 3.8 mmol/L (3.5-5.1); Protein, Total 7.1 g/dL (6.4-8.2); Sodium Level 142 mmol/L (136-145); Triglycerides 61 mg/dL; Very Low Density Lipoprotein 12 mg/dL (5-40)
== END | disposition home or self-care (01) ==
LOC: MFPLAB 08:02
PROVIDERS: PCP Family Medicine; Visit Provider Family Medicine
DX: E78.00 Pure hypercholesterolemia, unspecified (principal); E55.9 Vitamin D deficiency, unspecified
CPT/HCPCS: 36415; 80053; 80061; 82306

== ENCOUNTER → 2022-09-08 | Outpatient (CLI) | payer MEDICARE, SELFPAY ==
--- NOTE | 2022-09-08 09:39 | BI_ITS ---
MAMMOGRAPHY - BILATERAL SCREENING REASON FOR EXAM: Female, 77 years old. Routine annual screening examination. PERTINENT HISTORY: Personal history of breast cancer. Prior right lumpectomy. TECHNIQUE: Digital bilateral breast román (3D mammographic acquisition) in the CC and MLO projections. 2-D mediolateral oblique (MLO) and craniocaudad (CC) views of both breasts were obtained. CAD: Full Field Digital Mammography with Computer Added Detection was performed. COMPARISON: Comparison is made with prior study dated September 01, 2021 and August 28, 2020. FINDINGS: Breast Composition: There are scattered areas of fibroglandular density. There are no dominant masses or suspicious calcifications. Stable benign appearing bilateral axillary nodes nodes. No other significant abnormalities are identified. There has been no significant change since the prior study. BI/SCRN MAMM (CAD)W/ROMÁN BILAT IMPRESSION: Stable bilateral screening mammogram. Yearly follow-up mammogram recommended. (A) ASSESSMENT CATEGORY: BIRADS Category 2: Benign. A letter regarding these results will be sent to the patient by the facility within 30 days. Approximately 10% of breast cancers are not detected by mammography. A normal mammogram should not delay biopsy of a clinically suspicious abnormality. [id number] Electronically Signed: Praveen Barrett MD at 10:49 EDT ,
== END | disposition home or self-care (01) ==
LOC: OPBI 09:37
PROVIDERS: PCP Family Medicine; Referring Provider Family Medicine; Visit Provider Family Medicine
DX: Z12.31 Encounter for screening mammogram for malignant neoplasm of breast (principal); Z85.3 Personal history of malignant neoplasm of breast
CPT/HCPCS: 77063; 77067

== ENCOUNTER 2023-03-06 09:51 | Emergency (ER) | payer MEDICARE, SELFPAY ==
[2023-03-06 09:51] VITALS: BP 168/77; PULSE 76; RESP 18; TEMP 35.9; O2SAT 100
--- NOTE | 2023-03-06 10:05 | RAD_ITS ---
INDICATION: fall, pain EXAMINATION/TECHNIQUE: X-RAY - RIGHT XR Humerus Min 2 Views 2 VIEWS COMPARISON: No relevant prior comparison study available FINDINGS: SOFT TISSUES: Soft tissue swelling. No radiopaque foreign body. BONES/JOINTS: Impacted nondisplaced fracture of the humeral neck. No evidence of dislocation. The acromioclavicular joint is unremarkable. No sclerotic or destructive changes observed. RAD/Shoulder min 2 Views IMPRESSION: Impacted nondisplaced fracture of the humeral neck. Electronically Signed: Lior Cho MD at 10:25 EST ,
[2023-03-06 10:35] VITALS: BP 154/72; PULSE 70; RESP 16; TEMP 36.8; O2SAT 100
--- NOTE | 2023-03-06 10:50 | EX.ED.UPPERE ---
HPI History of Present Illness Chief Complaint: Upper Extremity Injury Informant: patient and family Occured/Mechanism Mechanism/Context: Yes same level fall Narrative Narrative: Healthy 77-year-old stumbled and fell on carpeted surface in her home this morning, landing against the floor on her right side injuring her right shoulder. She is right-hand dominant. She denies hitting her head, having any chest pain or trouble breathing, abdominal discomfort, hip or lower extremity discomfort. She has been able to stand and walk since this occurred. She denies any numbness or weakness in her hand. [facility] Medical History DCIS (ductal carcinoma in situ) of breast Diverticulitis High cholesterol Home Medications Bifidobacterium infantis 1.5 billion cell capsule (Digestive Probiotic) 4 mg PO MOWEFR 06/07/18 [History Last Taken Unknown] atorvastatin 10 mg tablet (Lipitor) 10 mg PO QODAY 06/07/18 [History Last Taken Unknown] calcium carbonate 500 mg calcium (1,250 mg) tablet (Calcium 500) 500 mg PO BID 06/07/18 [History Last Taken Unknown] omega 9-fui-pqw-fish oil 1,000 mg (120 mg-180 mg) capsule (Fish Oil) 1 cap PO DAILY 06/07/18 [History Last Taken 06/22/18] ciprofloxacin HCl 500 mg tablet 500 mg PO BID #20 tabs 10/07/18 [Rx Last Taken Unknown] docusate sodium 100 mg capsule 100 mg PO BID #20 caps 10/07/18 [Rx Last Taken Unknown] metronidazole 500 mg tablet 500 mg PO Q8H #30 tabs 10/07/18 [Rx Last Taken Unknown] ondansetron 4 mg disintegrating tablet 4 mg PO Q8H PRN PRN Nausea #10 tabs 10/07/18 [Rx Last Taken Unknown] hydrocodone-acetaminophen 5-325mg 5mg-325mg 1 tab PO Q6H PRN PRN Pain 3 days #12 TABLETS 03/06/23 [Rx Last Taken Unknown] Allergy/AdvReac Type Severity Reaction Status Date / Time meperidine [From Demerol] Allergy Mild Unknown Verified 03/06/23 09:51 Family History Sister CAD (coronary artery disease) Brother CAD (coronary artery disease) Cancer leukemia Surgical History H/O: hysterectomy History of foot surgery History of lumpectomy of right breast S/P D&C (status post dilation and curettage) Social History (Updated 03/06/23 @ 10:[address] Ludwin Red MD) household members: significant other Smoking Status: Never smoker alcohol intake: never substance use type: does not use ROS ROS ED Constitutional Constitutional ED: Denies chills or fever(s) Musculoskeletal Musculoskeletal: Reports extremity pain; Denies neck pain Integumentary Denies Abrasions, rash or wounds Neurologic Neurologic: Denies paresthesias or weakness EXAM Physical Exam Const Vital Signs: 03/06/23 09:51 Temperature 96.6 F L Temperature Source Temporal Pulse Rate 76 Respiratory Rate 18 Blood Pressure 168/77 H Blood Pressure Mean 107 Pulse Ox 100 Oxygen Delivery Method Room Air Positive well nourished and well developed General Appearance ED: well developed and NAD Eyes PERRL and EOMs intact bilaterally Neck full ROM and supple Chest Wall inspection of chest normal Resp normal respiratory effort Back/Spine normal ROM and normal to inspection Extremity Extremity Narrative: Full range of motion of all joints of all 4 extremities except for the right shoulder which is very limited due to pain. Tender in the proximal right humerus. No acromioclavicular joint tenderness or deformity/swelling. No shoulder joint deformity. Neurovascularly intact distally with a 2+/4 radial pulse and normal motor function of the hand. No tenderness in the elbow, wrist, or elsewhere in the right upper extremity. Neuro oriented x3, no focal motor deficits and no sensory deficits noted Sensorium / Orientation: alert Psych mental status grossly normal and thought process normal Skin no wounds Rashes: no rashes MDM MDM MDM Narrative Medical decision making narrative: 2 view x-ray series of the right shoulder on my interpretation shows an impacted nondisplaced fracture of the humeral neck it appears to be at the surgical neck. This is consistent with an 1 part fracture. The scapular Y view shows no dislocation nor does she appear to be dislocated clinically. She is neurovascularly intact, will be treated with [place], and a sling and swath until she can follow-up with orthopedics. We discussed care at home. Her lives with her, she is high functioning for her age, multiple family members are here and everyone in agreement that she can safely be at home and will have enough assistance. No need for admission right now, although this would less likely be surgical we will have her follow-up with orthopedics for further evaluation and treatment with other device if indicated. Radiography Diagnostic Testing: Clinical Impression(s) from Imaging Studies Shoulder X-Ray 03/06/23 10:05 IMPRESSION: Impacted nondisplaced fracture of the humeral neck. Electronically Signed: Lior Cho MD at 10:25 EST , Discharge Plan Triage Chief Complaint: Upper Extremity Injury ED Provider: Ludwin Red Dx/Rx/DC Orders Clinical Impression: Fall from slip, trip, or stumble, Closed fracture of proximal end of right humerus Instructions: ED Fracture, Shoulder, ED Sling and Swathe Prescriptions: New hydrocodone-acetaminophen [hydrocodone-acetaminophen] 5-325 mg tablet 1 tab PO Q6H PRN PRN (Reason: Pain) 3 Days Qty: 12 0RF No Action atorvastatin [Lipitor] 10 mg tablet 10 mg PO QODAY calcium carbonate [Calcium 500] 500 mg calcium (1,250 mg) tablet 500 mg PO BID omega 2-vrh-lxw-fish oil [Fish Oil] 1,000 mg (120 mg-180 mg) capsule 1 cap PO DAILY Digestive Probiotic 1.5 billion cell capsule 4 mg PO MOWEFR metronidazole 500 MG tablet 500 mg PO Q8H Qty: 30 0RF ciprofloxacin HCl 500 MG tablet 500 mg PO BID Qty: 20 0RF docusate sodium 100 MG capsule 100 mg PO BID Qty: 20 0RF ondansetron 4 MG tablet 4 mg PO Q8H PRN PRN (Reason: Nausea) Qty: 10 0RF Primary Care Provider: [facility] Referrals: Saqib Pino DO [Med Staff - Active Staff] - As soon as possible (call for appt to be seen within next 1-2 weeks max) Casa Gayle MD [Primary Care Provider] - Disposition Disposition: Home, Self Care
[2023-03-06] MEDS: HYDROcodone Bitartrate/Apap 5/325 Tablet PO (11:23)
[2023-03-06 11:25] VITALS: BMI 25.3
[2023-03-06 11:35] VITALS: BP 150/70; PULSE 76; RESP 14; TEMP 36.8; O2SAT 100
[2023-03-06 11:51] VITALS: BP 148/68; PULSE 78; RESP 18; TEMP 36.7; O2SAT 100
--- NOTE | 2023-03-06 11:56 | NURSING ---
Addendum entered by Lissett Jonas 03/06/23 12:01: AND STATED WE WILL ALTERNATE TYLENOL AND MOTRIN, REST AND ICE UNTIL TOMORROW. NORCO WAS GIVEN PRIOR TO DC HOME. Original Note: 03/06/23@ 4280- PT AND FAMILY EXPLAINED THAT NO LOCAL PHARMACIES ARE OPEN AT THIS TIME AND THAT THE ONLY WAY THE MEDICATION FOR PAIN COULD BE FILLED WOULD BE THROUGH MEDS TO BEDS FROM OUR PHARMACY. PT AND FAMILY OPTED FOR NOT FILLING THE PAIN MEDICATION NOW
== END 2023-03-06 11:52 | disposition home or self-care (01) ==
PROVIDERS: Emergency Provider Emergency Medicine; PCP Family Medicine; Visit Provider Emergency Medicine
DX: S42.201A Unspecified fracture of upper end of right humerus, initial encounter for closed fracture (principal); E78.00 Pure hypercholesterolemia, unspecified; Z79.899 Other long term (current) drug therapy; W19.XXXA Unspecified fall, initial encounter
CPT/HCPCS: 73030; 99282

== ENCOUNTER → 2023-07-18 | Outpatient (CLI) | payer MEDICARE, SELFPAY ==
[2023-07-18 10:42] LABS: ALB/GLOB Ratio 1.3 RATIO (0.9-2.4); AST(SGOT) 16 U/L (15-37); Alanine Aminotransfer ALT/SGPT 31 U/L (13-56); Alkaline Phosphatase 75 U/L (45-117); Anion Gap 4 (5-15); BUN 11 mg/dL (7-18); BUN/Creat Ratio 13.6 RATIO (10-20); Calcium,Total 9.7 mg/dL (8.5-10.1); Chloride 107 mmol/L (98-107); Cholesterol 203 mg/dL (200); Creatinine, Serum 0.81 mg/dL (0.55-1.02); EST Glomerular Filtration Rate 73 mL/min (>60); Est Glom Filt Rate - Afr Amer 88 mL/min (>60); Globulin 3.1 g/dL (2.2-4.2); Glucose 104 mg/dL (74-106); High Density Lipoprotein 67 mg/dL; Potassium 4.1 mmol/L (3.5-5.1); Protein, Total 7.1 g/dL (6.4-8.2); Sodium Level 141 mmol/L (136-145); Triglycerides 102 mg/dL; Very Low Density Lipoprotein 20 mg/dL (5-40)
== END | disposition home or self-care (01) ==
LOC: MFPLAB 08:08
PROVIDERS: PCP Family Medicine; Visit Provider Family Medicine
DX: E78.00 Pure hypercholesterolemia, unspecified (principal); I10 Essential (primary) hypertension
CPT/HCPCS: 36415; 80053; 80061

== ENCOUNTER → 2024-01-11 | Outpatient (CLI) | payer MEDICARE, SELFPAY ==
[2024-01-11 10:36] LABS: ALB/GLOB Ratio 1.2 RATIO (0.9-2.4); AST(SGOT) 19 U/L (15-37); Alanine Aminotransfer ALT/SGPT 27 U/L (13-56); Albumin, Serum 3.8 g/dL (3.2-5.0); Alkaline Phosphatase 81 U/L (45-117); Anion Gap 4 (5-15); BUN 13 mg/dL (7-18); BUN/Creat Ratio 16.7 RATIO (10-20); Calcium,Total 9.1 mg/dL (8.5-10.1); Chloride 106 mmol/L (98-107); Cholesterol 200 mg/dL (200); Creatinine, Serum 0.78 mg/dL (0.55-1.02); EST Glomerular Filtration Rate 76 mL/min (>60); Est Glom Filt Rate - Afr Amer 92 mL/min (>60); Globulin 3.1 g/dL (2.2-4.2); Glucose 94 mg/dL (74-106); High Density Lipoprotein 76 mg/dL; Protein, Total 6.9 g/dL (6.4-8.2); Sodium Level 141 mmol/L (136-145); Triglycerides 87 mg/dL; Very Low Density Lipoprotein 17 mg/dL (5-40)
== END | disposition home or self-care (01) ==
LOC: MFPLAB 08:18
PROVIDERS: PCP Family Medicine; Referring Provider Family Medicine; Visit Provider Family Medicine
DX: I10 Essential (primary) hypertension (principal)
CPT/HCPCS: 36415; 80053; 80061

== ENCOUNTER → 2024-07-16 | Outpatient (CLI) | payer MEDICARE, SELFPAY ==
[2024-07-16 11:31] LABS: ALB/GLOB Ratio 1.8 RATIO (0.9-2.4); AST(SGOT) 25 U/L (<=31); Alanine Aminotransfer ALT/SGPT 20 U/L (<=34); Albumin, Serum 4.4 g/dL (3.4-4.8); Alkaline Phosphatase 82 U/L (35-104); Anion Gap 10 (5-15); BUN 12 mg/dL (4-19); BUN/Creat Ratio 16.1 RATIO (10-20); Calcium,Total 9.6 mg/dL (7.6-11.0); Carbon Dioxide 25.6 mmol/L (21.0-32.0); Chloride 103 mmol/L (98-108); Cholesterol 158 mg/dL (<=200); Creatinine, Serum 0.77 mg/dL (0.70-1.20); EST Glomerular Filtration Rate 80 (>60); Globulin 2.5 g/dL (2.2-4.2); Glucose 89 mg/dL (70-99); High Density Lipoprotein 57 mg/dL; Low Density Lipoprotein Calc. 84 mg/dL; Potassium 4.2 mmol/L (3.3-5.1); Protein, Total 6.9 g/dL (5.9-8.4); Sodium Level 139 mmol/L (133-145); Total Bilirubin 0.52 mg/dL (0.00-1.30); Triglycerides 87 mg/dL; Very Low Density Lipoprotein 17 mg/dL (5-40); cholesterol:hdl ratio screen 2.77
== END | disposition home or self-care (01) ==
LOC: MFPLAB 08:02
PROVIDERS: PCP Family Medicine; Referring Provider Family Medicine; Visit Provider Family Medicine
DX: I10 Essential (primary) hypertension (principal)
CPT/HCPCS: 36415; 80053; 80061

== ENCOUNTER → 2025-01-09 | Outpatient (CLI) | payer MEDICARE, SELFPAY ==
--- NOTE | 2025-01-09 12:45 | BI_ITS ---
EXAM: BI/SCRN MAMM (CAD)W/ROMÁN BILAT
== END | disposition home or self-care (01) ==
LOC: OPBI 12:28
PROVIDERS: PCP Family Medicine; Referring Provider Family Medicine; Visit Provider Family Medicine
DX: Z12.31 Encounter for screening mammogram for malignant neoplasm of breast (principal)
CPT/HCPCS: 77063; 77067

== ENCOUNTER → 2025-01-13 | Outpatient (CLI) | payer MEDICARE, SELFPAY ==
[2025-01-13 10:28] LABS: Anion Gap 9 (5-15); BUN 13 mg/dL (4-19); BUN/Creat Ratio 17.8 RATIO (10-20); Calcium,Total 9.8 mg/dL (7.6-11.0); Carbon Dioxide 27.8 mmol/L (21.0-32.0); Chloride 104 mmol/L (98-108); Cholesterol 198 mg/dL (<=200); Glucose 98 mg/dL (70-99); Low Density Lipoprotein Calc. 109 mg/dL; Potassium 4.5 mmol/L (3.3-5.1); Triglycerides 85 mg/dL; Very Low Density Lipoprotein 17 mg/dL (5-40); cholesterol:hdl ratio screen 2.67
== END | disposition home or self-care (01) ==
LOC: MFPLAB 08:02
PROVIDERS: PCP Family Medicine; Visit Provider Family Medicine
DX: E78.00 Pure hypercholesterolemia, unspecified (principal)
CPT/HCPCS: 36415; 80048; 80061